=== PATIENT | male | born 1960 | race Caucasian/White ===

== ENCOUNTER → 2020-08-22 | Outpatient (CLI) | payer OTHER ==
--- NOTE | 2020-08-22 12:53 | KCIC ---
Study: MRI of the left hip without contrast INDICATION: Left hip pain. No recent injury. COMPARISON: None. TECHNIQUE: Multiplanar MR imaging of the left hip performed without the use of intravenous or intra-a rticular contrast. FINDINGS: Bones/hip: No acute fracture or focally aggressive marrow signal abnormality. No avascular necrosis o r stress reaction seen at either hip. Ghost track from intramedullary nail removal on the left. Femor al head/neck junction osteophyte formation bilaterally in addition to degenerative changes along the acetabular rim with cyst formation. Chronic degenerative proliferation along the left greater trochan ter and at the ischial tuberosities. Incompletely assessed discogenic arthrosis at L5-S1. Labrum/cartilage: Multifocal degenerative tearing of the labrum on the left. Even more extensive tear ing of the partially assessed right labrum with complex paralabral cyst formation. Partial thickness chondral loss at the left hip but in part high-grade. No well delineated full-thickness defect. Ligamentum teres: At least partially torn and replaced by heterogeneous T2 signal. Greater trochanteric bursa: Greater trochanteric bursitis on the left with fluid in continuity with t he sub-gluteus medius and minimus bursae. Musculotendinous: Full-thickness tear of the gluteus medius. Diffuse fatty infiltration of the gluteu s and medius likely with heterotopic ossification at the expected location of the myotendinous juncti on. Favored a high-grade partial-thickness tearing of the gluteus minimus with less pronounced muscul ar fatty infiltration. Insertional iliopsoas tendinosis. Tendinosis at the rectus femoris origin. Ten dinosis and an intermediate grade chronic partial tear at the left common hamstring origin. Tendinosi s and a low-grade partial tear at the right common hamstring origin. IMPRESSION: 1. Fully torn gluteus medius on the left with severe fatty infiltration of the associated muscle. Th ere appears to be heterotopic ossification at the expected location of the myotendinous junction sugg esting that this tear is chronic. Favored high-grade partial-thickness as opposed to full-thickness t earing of the gluteus minimus off its insertion. Intermediate grade chronic partial tear of the left common hamstring origin. Mild iliopsoas and rectus femoris tendinosis. 2. Greater trochanteric bursitis on the left with fluid communicating with the sub-gluteus medius an d minimus bursae. 3. Multifocal degenerative tearing of the labrum on the left on background of arthrosis and high-gra de partial thickness chondral loss. At least partially torn ligamentum teres. 4. The right hip is only partially evaluated but exhibits diffusely labral tearing on a background o f arthrosis. Mild chronic low-grade tear of the right common hamstring origin. Electronically signed by: MANDI WARD MD (08/22/2020 12:51 PM) [id number]
== END ==
LOC: KCIC MRI 10:35
PROVIDERS: ATTEND Family Medicine
DX: S76.312A Strain of muscle, fascia and tendon of the posterior muscle group at thigh level, left thigh, initial encounter (principal); S76.012S Strain of muscle, fascia and tendon of left hip, sequela; S76.392 Other specified injury of muscle, fascia and tendon of the posterior muscle group at thigh level, left thigh; S73.192A Other sprain of left hip, initial encounter; M70.62 Trochanteric bursitis, left hip; M25.852 Other specified joint disorders, left hip; M79.18 Myalgia, other site; M47.817 Spondylosis without myelopathy or radiculopathy, lumbosacral region; X58.XXXS Exposure to other specified factors, sequela; X58.XXXA Exposure to other specified factors, initial encounter; Y93.89 Activity, other specified; Y92.89 Other specified places as the place of occurrence of the external cause; Y99.8 Other external cause status
CPT/HCPCS: 73721

== ENCOUNTER → 2020-09-18 | Outpatient (CLI) | payer OTHER ==
--- NOTE | 2020-09-18 17:09 | KCIC ---
MR LUMBAR SPINE WO [id number] Date: 09/18/2020 2:55 PM Indication: LUMBAR RADICULOPATHY. Chronic left sided lower back pain into left hip and leg. Comparison: None. Technique: Multi-planar multi-weighted magnetic resonance imaging of the lumbar spine was performed w ithout intravenous contrast using the standard lumbar spine protocol. FINDINGS: Right convex lumbar curvature. Trace retrolisthesis at L1-2 and L2-3. No acute fracture. Mild to mode rate multilevel degenerative disc desiccation and disc height loss. No marrow replacing process to ibarra ggest malignancy. The conus terminates at a normal level. No abnormal signal is seen within the visualized distal spina l cord. No clumping of intrathecal nerve roots. No soft tissue abnormality in the visualized abdomen or pelvis. T12-L1: Disc bulge. Mild facet arthropathy. No significant spinal stenosis or neural foraminal narrow ing. L1-L2: Disc bulge. Mild facet arthropathy. Mild spinal stenosis and left lateral recess narrowing. Mo derate bilateral neural foraminal narrowing. L2-L3: Disc bulge. Moderate facet arthropathy. Mild spinal stenosis. Mild right and moderate left lat eral recess narrowing. Moderate right and moderate to severe left neural foraminal narrowing. L3-L4: Disc bulge with annular tear. Severe facet arthropathy. Ligamentum flavum thickening. Moderate to severe spinal stenosis and left greater than right lateral recess narrowing. Moderate right and m oderate to severe left neural foraminal narrowing. L4-L5: Disc bulge. Severe facet arthropathy. Ligamentum flavum thickening. Severe spinal stenosis and lateral recess narrowing. Moderate to severe bilateral neural foraminal narrowing. L5-S1: Disc bulge. Moderate facet arthropathy. No significant spinal stenosis. Mild bilateral neural foraminal narrowing. IMPRESSION: Severe spinal canal stenosis at L4-5, moderate to severe at L3-4. Degenerative changes otherwise deta iled level by level above. Electronically signed by: Chivo Solitario MD (09/18/2020 5:07 PM) DAVIES CAMPUSSESAR
== END ==
LOC: KCIC MRI 14:24
PROVIDERS: ATTEND Physician Assistant
DX: M48.061 Spinal stenosis, lumbar region without neurogenic claudication (principal); M47.26 Other spondylosis with radiculopathy, lumbar region; M48.8X5 Other specified spondylopathies, thoracolumbar region; M48.8X6 Other specified spondylopathies, lumbar region; M43.8X6 Other specified deforming dorsopathies, lumbar region; M54.42 Lumbago with sciatica, left side; G89.29 Other chronic pain
CPT/HCPCS: 72148

== ENCOUNTER → 2020-10-02 | Outpatient (CLI) | payer OTHER ==
[~2020-10-02] MED LIST: IOHEXOL 180 MG/ML 10 ML VIAL. ONE; LORA10TA68 PO; MELO15TA23 PO; METH-561 PO; TRAM50TA PO; methylPREDNISolone ACETATE 80 MG/ML VIAL. ONE
--- NOTE | 2020-10-02 16:57 | PDOC1 ---
INITIAL PAIN CONSULT DATE OF SERVICE: DOS: DATE: 10/02/20 TIME: 16:50 CHIEF COMPLAINT: Chief Complaint: Low back and left lower extremity pain HISTORY OF PRESENT ILLNESS: 60-year-old male presents history of pain low back left lower extremity for approximately 2 months not the result of any specific injury or accident that he is aware of but had injury in the past with a torn gluteus medius tendon and pain began August 11 this year in the low back bilaterally and into the left lateral and posterior leg into the posterior gluteus posterior thigh lateral anterior thigh medial thigh medial lower leg into the ankle and foot with some tingling in the foot as well. Patient reports a stabbing and throbbing in the back shooting in the leg on the left side tingling and numbness in the foot and leg radiating and aching in the low back patient reports is worse with walking standing changing positions better with sitting better with laying down generally does not awaken her from sleep at night does not bother control with his body walking he has a cane with him today which he is using in his right hand patient reports has had physical therapy in the past done exercise and is currently doing exercise neither which have helped decrease the pain significantly patient also has had chiropractic treatment which is helped temporarily has been using an inversion table at home which he feels has been slightly helpful but does not use it more than once or twice in the last few weeks patient did have an MRI scan of the lumbar spine showing severe spinal canal stenosis L4-5 moderate to severe at L3-4 with disc bulge and annular tear at L3-4 level and severe facet arthropathy at L4-5 with severe spinal stenosis and lateral recess narrowing with moderate to severe bilateral neuroforaminal narrowing at L4-5. Patient rates his disability rating 0-10 10 being the worst as a 10 with family home responsibilities recreation social activity occupation sexual behavior 7 with self-care and 0 with life support activities. PAST MEDICAL HISTORY: PMH: Arthritis PREVIOUS SURGERIES: Past Surgical Hx: Left femoral neck fracture 1977, 2 hernia repairs CURRENT MEDICATIONS: Current Meds: Active Scripts Medications Dose Route/Sig Max Daily Dose Days Date Category Claritin (Loratadine) 10 Mg Tablet 1 Tab PO DAILY 30 10/02/20 Reported Meloxicam 15 Mg Tablet 1 Tab PO DAILY 30 10/02/20 Reported Tramadol Hcl 50 Mg Tablet 50 Mg PO Q6HRS PRN 10/02/20 Reported Tramadol Hcl 50 Mg Tablet 50 Mg PO Q6HRS PRN 10/02/20 Reported Methocarbamol 500 Mg Tablet 500 Mg PO Q6HRS 10/02/20 Reported ALLERGIES; Allergies: Coded Allergies: hydrocodone (Verified Allergy, Unknown, Itching, 10/02/20) FAMILY HISTORY: Family Hx: Prostate cancer SOCIAL HISTORY: Social Hx: Patient is under alcohol does not smoke says any illegal illicit recreational drugs is lives with his spouse lives locally in [facility] and does construction administrator work currently. REVIEW OF SYSTEMS: ROS: Positive for those items mentioned in history of present illness, all systems are reviewed, otherwise negative ,and are complete full and well-documented on patient's chart. PHYSICAL EXAM: VS: Blood pressure is 140/86 pulse 103 respirations 18 temperature 90.3 F height is 6 foot weight is 219 pounds PE: PHYSICAL EXAMINATION: GENERAL: The patient is awake, alert, oriented, appropriate, very pleasant in demeanor. HEENT: Shows normocephalic, atraumatic. Extraocular movements are intact and symmetrical. Oral cavity: Mucous membranes moist and pink. Dentition is intact. NECK: Shows anterior throat supple without palpable lymphadenopathy noted. Swallow reflex symmetrical. CHEST: Shows normal on inspection. Breath sounds are clear bilaterally, no rales rhonchi wheezes auscultated. HEART: Shows S1, S2 clear. No murmurs auscultated. ABDOMEN: Soft, nontender, nondistended. No palpable organomegaly is noted. No rebound or guarding demonstrated. BACK: Shows spine grossly in the midline. Normal-appearing cervical lordotic curvature. There is slightly increased thoracic kyphosis, some minor flattening of the lumbar lordotic curvature. Lumbar paraspinous muscles show symmetrical on inspection, on palpation shows some moderate tenderness diffusely throughout the upper, middle and lower distribution of the paraspinous muscles bilaterally and also into the lower thoracic paraspinous musculature, firm and tender, but without specific trigger points, without radiation of pain. The patient has good rotational motion of the lumbar spine, both laterally as well as extension and flexion without significant difficulty. No tenderness over the spinous processes, sacrum or sacroiliac regions. EXTREMITIES: Lower extremities show deep tendon reflexes 2+ in the patellar and tendo calcaneus tendons. Motor exam is 5 on a scale of 5 with right dorsiflexion, extension, quadriceps and hamstring flexion and 4/5 on the left. Peripheral pulses are 1+ posterior tibial. No peripheral edema is noted bilaterally. Lower extremities are warm and dry to touch, equal in color and appearance. Straight leg raise noted to be positive on the left at approximately 40 degrees decreased with knee flexion, right side is negative. Gaenslen's and Peter's maneuvers are negative bilaterally. The patient is able to stand, stand on his toes without significant difficulty or loss of balance, walks with a slight favoring gait does appear to favor the left lower extremity is using a cane in his right hand ambulate. SKIN: Shows warm and dry, good turgor. No edema. No sores, rashes or bruising throughout. IMPRESSION: Impression: 60-year-old male with approximate 2-month history increasing pain low back left lower extremity radicular fashion. MRI scan lumbar spine as noted History of arthritis Plan: Options discussed with patient including conservative management physical therapies and interventional techniques. Patient like to pursue interventional techniques. We discussed a lumbar epidural steroid injections description as well as anatomical models to describe the procedure. Risks were discussed including but not limited to: Bleeding, infection, possibility of epidural hematoma and subsequent neurological compromise, dural puncture, headaches, spinal cord and/or nerve damage, side effects of steroid medication, and poor results regarding pain control. Patient understands and wished to proceed. Procedure is lumbar epidural steroid injection under local anesthetic using sterile prep and drape at the L4-5 level using C-arm fluoroscopic guidance in both AP and lateral views medications injected is 120 mg Depo-Medrol +10mL preservative-free normal saline and 2 mL contrast- condition at discharge is stable patient tolerated procedure well had no complications. SPARKLE GOMES MD Oct 02, 2020 16:57
--- NOTE | 2020-10-02 16:58 | PDOC4 ---
Procedure Note: ICD 10 Code: ICD 10 Code: M 54.16 M 48.06 M 51.36 Procedure Note: Patient was consented for lumbar epidural steroid injection with fluoroscopic guidance. Risks were discussed including but not limited to: Bleeding, infection, possibility of epidural hematoma and subsequent neurological compromise, dural puncture, headaches, spinal cord and/or nerve damage, side effects of steroid medication, and poor results regarding pain control. Patient understands and wished to proceed. Procedure is lumbar epidural steroid injection under local anesthetic using s terile prep and drape at the L4-5 level using C-arm fluoroscopic guidance in both AP and lateral views medications injected is 120 mg Depo-Medrol +10mL preservative-free normal saline and 2 mL contrast- condition at discharge is stable patient tolerated procedure well had no complications. SPARKLE GOMES MD Oct 02, 2020 16:58
== END ==
LOC: PNCL 14:02
PROVIDERS: ATTEND Anesthesiology
DX: M51.16 Intervertebral disc disorders with radiculopathy, lumbar region (principal); M79.662 Pain in left lower leg; M54.5 Low back pain; M19.90 Unspecified osteoarthritis, unspecified site; Z79.899 Other long term (current) drug therapy; Z98.890 Other specified postprocedural states
CPT/HCPCS: 62323; 99205; J1040; Q9965; G0463

== ENCOUNTER → 2020-10-23 | Outpatient (CLI) | payer OTHER ==
[~2020-10-23] MED LIST changes: -IOHEXOL 180 MG/ML 10 ML VIAL. ONE; -methylPREDNISolone ACETATE 80 MG/ML VIAL. ONE
--- NOTE | 2020-10-23 12:37 | PDOC ---
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 We discussed this in some detail with him today and will make recommendations and forward those to his employer as requested. Schedule return in approximately 1 week and will have him keep that appointment for potential reevaluation and treatment as necessary. Physical Exam: PE: . SPARKLE GOMES MD Oct 23, 2020 12:37
== END ==
LOC: PNCL 11:16
PROVIDERS: ATTEND Anesthesiology
DX: M51.16 Intervertebral disc disorders with radiculopathy, lumbar region (principal)
CPT/HCPCS: G0463

== ENCOUNTER → 2020-11-03 | Outpatient (CLI) | payer OTHER ==
[~2020-11-03] MED LIST changes: +IOHEXOL 180 MG/ML 10 ML VIAL. ONE; +methylPREDNISolone ACETATE 80 MG/ML VIAL. ONE
--- NOTE | 2020-11-03 10:18 | PDOC ---
Progress Note - Pain Clinic Date of Service: DOS: DATE: 11/03/20 TIME: 10:15 Diagnosis: Dx: Lumbar radiculopathy with lumbar degenerative disease and lumbar spinal stenosis History or Present Illness: HPI: 60-year-old male returns for follow-up status post lumbar epidural steroid injection x1. Patient reports about 75% improvement at least in the pain the low back and left lower extremity still significant pain in the left lower extremity lateral calf into the foot as well patient reports is worse with walking standing changing position he has been using an inversion table as well as wearing a back brace which he has with him today reports the pain is still significantly improved has been increasing his distance walking doing household activities work activities better and standing for longer periods well is sleeping better at night patient reports pain is 8 on scale 10 is worse over the past week 6 on average 1least is a 6 today pain scribes aching and tight tingling can be radiating and again of the left lower extremity into the foot patient reports no new motor or sensory deficits no new bowel or bladder incontinence. Patient reports with sitting is better with lying down the pain is almost 0. Patient reports new pain in his left foot and is having more pain and having difficulty using inversion table because the device that holds the feet is exacerbating the pain as well. Physical Exam: VS: Blood pressure 141/92 pulse 91 respirations 16 temperature 90.6 2 Fahrenheit weight is 224 pounds height is 6 foot PE: PHYSICAL EXAMINATION: GENERAL: The patient is awake, alert, oriented, appropriate, very pleasant in demeanor HEENT: Shows normocephalic, atraumatic. Extraocular movements are intact and symmetrical. Oral cavity: Mucous membranes moist and pink. Dentition is intact. NECK: Shows anterior throat supple without palpable lymphadenopathy noted. Swallow reflex symmetrical. CHEST: Shows normal on inspection. Breath sounds are clear bilaterally, no rales rhonchi wheezes auscultated. HEART: Shows S1, S2 clear. No murmurs auscultated. ABDOMEN: Soft, nontender, nondistended, obese. No palpable organomegaly is noted. BACK: Shows spine grossly in the midline. Normal-appearing cervical lordotic curvature. There is slightly increased thoracic kyphosis, some minor flattening of the lumbar lordotic curvature. Lumbar paraspinous muscles show symmetrical on inspection, on palpation shows some moderate tenderness diffusely throughout the upper, middle and lower distribution of the paraspinous muscles, but without specific trigger points, without radiation of pain. The patient has good rotational motion of the lumbar spine, both laterally as well as extension and flexion without significant difficulty. EXTREMITIES: Lower extremities show deep tendon reflexes 2+ in the patellar and tendo calcaneus tendons. Motor exam is 5 on a scale of 5 with right dorsiflexion, extension, quadriceps and hamstring flexion and 4/5 on the left. Peripheral pulses are 1+ posterior tibial. No peripheral edema is noted bilaterally. Lower extremities are warm and dry to touch, equal in color and appearance. SKIN: Shows warm and dry, good turgor. No edema. No sores, rashes or bruising throughout. Procedure: Procedure: Options discussed with patient. Patient chart was reviewed his current medication regimen updated current review of systems updated today as well. We will proceed with a second lumbar epidural steroid traction today with fluoroscopic guidance. Risks were discussed including but not limited to: Bleeding, infection, possibility of epidural hematoma and subsequent neurologi theresa compromise, dural puncture, headaches, spinal cord and/or nerve damage, side effects of steroid medication, and poor results regarding pain control. Patient understands and wished to proceed. Patient return to clinic in approximate 2 is a follow-up, was counseled as return appointment, activity level, and side effects to be aware of. Medication Injected: Med Injected: Procedure is lumbar epidural steroid injection under local anesthetic using sterile prep and drape at the L4-5 level using C-arm fluoroscopic guidance in both AP and lateral views medications injected is 120 mg Depo-Medrol +10mL p reservative-free normal saline and 2 mL contrast- condition at discharge is stable patient tolerated procedure well had no complications. Condition at Discharge: Condition at Discharge: Condition at discharge stable, patient already the procedure well and had no complications. SPARKLE GOMES MD Nov 03, 2020 10:18
--- NOTE | 2020-11-03 10:19 | PDOC4 ---
Procedure Note: ICD 10 Code: ICD 10 Code: M54.16 M51.36 M4 8.06 Procedure Note: Patient was consented for lumbar epidural steroid injection with fluoroscopic guidance risks were discussed including but not limited to: Bleeding, infection, possibility of epidural hematoma and subsequent neurological compromise, dural puncture, headaches, spinal cord and/or nerve damage, side effects of steroid medication, and poor results regarding pain control. Patient understands and wished to proceed. Procedure is lumbar epidural steroid injection under local anesthetic using sterile prep and drape at the L4-5 level using C-arm fluoroscopic guidance in both AP and lateral views medications injected is 120 mg Depo-Medrol +10mL preservative-free normal saline and 2 mL contrast- condition at discharge is stable patient tolerated procedure well had no complications. SPARKLE GOMES MD Nov 03, 2020 10:19
== END | disposition home or self-care (01) ==
LOC: PNCL 09:42
PROVIDERS: ATTEND Anesthesiology
DX: M51.16 Intervertebral disc disorders with radiculopathy, lumbar region (principal); M48.061 Spinal stenosis, lumbar region without neurogenic claudication; Z79.899 Other long term (current) drug therapy; Z88.8 Allergy status to other drugs, medicaments and biological substances
CPT/HCPCS: 62323; J1040; Q9965

== ENCOUNTER → 2020-12-30 | Outpatient (CLI) | payer OTHER ==
[~2020-12-30] MED LIST changes: +methylPREDNISolone ACETATE 40 MG/ML VIAL. ONE
--- NOTE | 2020-12-30 08:30 | PDOC ---
Progress Note - Pain Clinic Date of Service: DOS: DATE: 12/30/20 TIME: 08:27 Diagnosis: Dx: Lumbar radiculopathy lumbar degenerative disease and lumbar spinal stenosis History or Present Illness: HPI: 60-year-old male returns for follow-up status post lumbar epidural steroid injection last on November 03, 2020 patient did very well about 90% improvement lasting for 2 months patient reports he did very well the pain was not returning whatsoever back he fell on ice tears landing on his left hip very abruptly with significant pain returning after that time. Patient reports prior to the fall he is having almost no pain in the left leg or the low back but now it is returning is on the right side as well patient reports some right-sided pain in the leg after the fall which is new for him as he not had a right-sided pain previously. Patient reports mostly in the hip and lower extremity the left lower leg only in the right hip and thigh patient reports aching sharp tingling stabbing rates a 10 on scale 10 is worse over the past week 5 on average 5 its least is a 5 today patient reports no loss of motor function no bowel or bladder incontinence. Prior to that he is doing much better distance walking doing household activities try with greater ease and comfort as well as sleeping better. Patient reports awakening from sleep now about once a night once every 6 hours or so. Physical Exam: VS: Blood pressure is 136/86 pulse 84 respirations 18 temperature is 90.0 F weight is 2 1 5 pounds PE: PHYSICAL EXAMINATION: GENERAL: The patient is awake, alert, oriented, appropriate, very pleasant in demeanor HEENT: Shows normocephalic, atraumatic. Extraocular movements are intact and symmetrical. Oral cavity: Mucous membranes moist and pink. Dentition is intact. NECK: Shows anterior throat supple without palpable lymphadenopathy noted. Swallow reflex symmetrical. CHEST: Shows normal on inspection. Breath sounds are clear bilaterally, distant but no rales or rhonchi. HEART: Shows S1, S2 clear. No murmurs auscultated. ABDOMEN: Soft, nontender, nondistended. No palpable organomegaly is noted. BACK: Shows spine grossly in the midline. Normal-appearing cervical lordotic curvature. There is slightly increased thoracic kyphosis, some minor flattening of the lumbar lordotic curvature. Lumbar paraspinous muscles show symmetrical on inspection, on palpation shows some moderate tenderness diffusely throughout the upper, middle and lower distribution of the paraspinous muscles, but without specific trigger points, without radiation of pain. The patient has good rotational motion of the lumbar spine, both laterally as well as extension and flexion without significant difficulty. EXTREMITIES: Lower extremities show deep tendon reflexes 2+ in the patellar and tendo calcaneus tendons. Motor exam is 5 on a scale of 5 with right dorsiflexion, extension, quadriceps and hamstring flexion and 4/5 on the left. Peripheral pulses are 1+ posterior tibial. No peripheral edema is noted bilaterally. Lower extremities are warm and dry. SKIN: Shows warm and dry, good turgor. No edema. No sores, rashes or bruising throughout. Procedure: Procedure: Options discussed with the patient. Patient chart reviews his current medi cation regimen updated current review of systems updated today as well. We will proceed with a lumbar epidural steroid injection today with fluoroscopic guidance risks were discussed including but not limited to: Bleeding, infection, possibility of epidural hematoma and subsequent neurological compromise, dural puncture, headaches, spinal cord and/or nerve damage, side effects of steroid medication, and poor results regarding pain control. Patient understands and wished to proceed. Patient will return to clinic in approximate 2 weeks for follow-up, was counseled as to return appointment, activity level, and side effects to be aware of. Medication Injected: Med Injected: Procedure is lumbar epidural steroid injection under local anesthetic using sterile prep and drape at the L4 5 level using C-arm fluoroscopic guidance in both AP and lateral views medications injected is 120 mg Depo-Medrol +10mL preservative-free normal saline and 2 mL contrast- condition at discharge is sta ble patient tolerated procedure well had no complications. Condition at Discharge: Condition at Discharge: Condition at discharge stable, patient tolerated procedure well and had no complications. SPARKLE GOMES MD Dec 30, 2020 08:30
--- NOTE | 2020-12-30 08:31 | PDOC4 ---
Procedure Note: ICD 10 Code: ICD 10 Code: M54.16 M 48.06 M51.36 Procedure Note: Patient was consented for lumbar epidural steroid injection with fluoroscopic guidance. Risks were discussed including but not limited to: Bleeding, infection, possibility of epidural hematoma and subsequent neurological compromise, dural puncture, headaches, spinal cord and/or nerve damage, side effects of steroid medication, and poor results regarding pain control. Patient understands and wished to proceed. Procedure is lumbar epidural steroid injection under local anesthetic using carmen rile prep and drape at the L4-5 level using C-arm fluoroscopic guidance in both AP and lateral views medications injected is 120 mg Depo-Medrol +10mL preservative-free normal saline and 2 mL contrast- condition at discharge is stable patient tolerated procedure well had no complications. SPARKLE GOMES MD Dec 30, 2020 08:31
== END | disposition home or self-care (01) ==
LOC: PNCL 07:38
PROVIDERS: ATTEND Anesthesiology
DX: M51.16 Intervertebral disc disorders with radiculopathy, lumbar region (principal); M48.061 Spinal stenosis, lumbar region without neurogenic claudication; Z79.899 Other long term (current) drug therapy; Z88.8 Allergy status to other drugs, medicaments and biological substances
CPT/HCPCS: 62323; J1030; J1040; Q9965

== ENCOUNTER → 2021-01-08 | Outpatient (CLI) | payer OTHER ==
[~2021-01-08] MED LIST changes: -IOHEXOL 180 MG/ML 10 ML VIAL. ONE; -methylPREDNISolone ACETATE 40 MG/ML VIAL. ONE; -methylPREDNISolone ACETATE 80 MG/ML VIAL. ONE
--- NOTE | 2021-01-08 16:31 | PDOC ---
Progress Note - Pain Clinic Date of Service: DOS: DATE: 01/08/21 TIME: 16:27 Diagnosis: Dx: Lumbar radiculopathy with lumbar degenerative disease lumbar spinal stenosis History or Present Illness: HPI: 60-year-old male returns for follow-up status post lumbar epidural steroid injection. Patient reports no significant improvement and actually his pain is gotten worse in the low back and the left lower extremity with pain rating the posterior gluteus posterior lateral thigh lateral anterior thigh anteromedial thigh medial lower leg to the ankle on the left side worse with walking standing changing positions patient reports initially did very well after the first injections he had about 90% improvement for almost 2 months following his first injection however his most recent December 30 has actually had some increased pain afterwards with significant fatigability and weakness in the left lower extremity as well as increased pain patient rates his 10 on scale 10 is worse over the past week 8 on average to its least is an 8 today patient reported sharp and tingling burning stabbing radiating in the back and the left lower extremity as noted. Patient reports no bowel or bladder incontinence no loss of function but significant fatigability in the left lower extremity with sensation of weakness. Physical Exam: VS: Blood pressure is 137/108 pulse 84 respirations 18 temperature 90.1 F height is 6 foot weight is 213 pounds PE: PHYSICAL EXAMINATION: GENERAL: The patient is awake, alert, oriented, appropriate, very pleasant in demeanor HEENT: Shows normocephalic, atraumatic. Extraocular movements are intact and symmetrical. Oral cavity: Mucous membranes moist and pink. Dentition is intact. NECK: Shows anterior throat supple without palpable lymphadenopathy noted. Swallow reflex symmetrical. CHEST: Shows normal on inspection. Breath sounds are clear bilaterally, distant no rales or rhonchi. HEART: Shows S1, S2 clear. No murmurs auscultated. ABDOMEN: Soft, nontender, nondistended. No palpable organomegaly is noted. BACK: Shows spine grossly in the midline. Normal-appearing cervical lordotic curvature. There is slightly increased thoracic kyphosis, some flattening of the lumbar lordotic curvature. Lumbar paraspinous muscles show symmetrical on inspection, on palpation shows some moderate tenderness diffusely throughout the upper, middle and lower distribution of the paraspinous muscles without specific trigger points, without radiation of pain. The patient has good rotational motion of the lumbar spine, both laterally as well as extension and flexion without significant difficulty. EXTREMITIES: Lower extremities show deep tendon reflexes 2+ in the patellar and tendo calcaneus tendons. Motor exam is 5 on a scale of 5 with right dorsiflexion, extension, quadriceps and hamstring flexion and 4/5 on the left. Peripheral pulses are 1+ posterior tibial. No peripheral edema is noted bilaterally. Lower extremities are warm and dry. SKIN: Shows warm and dry, good turgor. No edema. No sores, rashes or bruising throughout. Procedure: Procedure: Options discussed with patient. Patient chart was reviewed his current medication regimen updated current review of systems updated today as well. We will check MRI scan as patient symptoms have significantly changed with increased weakness and increased pain in a lumbar radiculopathy pattern with an L4-5 dermatomal distribution on the left. Pending results, will formulate treatment plan at that time. Medication Injected: Med Injected: None Condition at Discharge: Condition at Discharge: Condition at discharge is stable. SPARKLE GOMES MD Jan 08, 2021 16:31
== END | disposition home or self-care (01) ==
LOC: PNCL 15:39
PROVIDERS: ATTEND Anesthesiology
DX: M51.16 Intervertebral disc disorders with radiculopathy, lumbar region (principal); M48.061 Spinal stenosis, lumbar region without neurogenic claudication; Z79.899 Other long term (current) drug therapy; Z88.8 Allergy status to other drugs, medicaments and biological substances
CPT/HCPCS: 99212; G0463

== ENCOUNTER → 2021-01-12 | Outpatient (CLI) | payer OTHER ==
--- NOTE | 2021-01-12 12:12 | KCIC ---
MR LUMBAR SPINE [id number] History: Reason: Left lumbar radiculopathy. / Spl. Instructions: / History: LBP and Lt. radiculopath y post fall. Technique: Multiplanar, multi sequential MR imaging was performed of the lumbar spine. Comparison: None Findings: Slight grade 1 anterolisthesis L4 on L5. Normal vertebral body height. No acute fracture. Conus terminates at the normal location. No evidence of nerve root clumping. L1-L2: Central disc protrusion with annular fissure. Mild canal narrowing. Mild facet arthropathy. M ild bilateral neuroforaminal narrowing. L2-L3: Small disc bulge. Moderate facet arthropathy. No canal narrowing. Mild subarticular recess na rrowing. Mild bilateral neuroforaminal narrowing. L3-L4: Broad-based disc bulge with central annular fissure. Advanced facet arthropathy. Limited flav um thickening. Moderate canal narrowing. Subarticular recess narrowing. Abutment of the descending L4 nerve roots, left greater than right. Moderate left and mild right neuroforaminal narrowing. L4-L5: Large disc extrusion centrally. Severe canal narrowing. Severe subarticular recess narrowing. Nerve root compression. Advanced facet arthropathy. Bilateral facet joint effusions. Mild bilateral neuroforaminal narrowing. L5-S1: Small disc bulge with annular fissure. Advanced facet arthropathy. No canal narrowing. No fortino roforaminal narrowing. When compared the prior examination the degenerative findings are similar. Impression: 1. Moderate lumbar spondylosis most prominent L3-L4 and L4-L5. 2. Severe L4-L5 canal narrowing with nerve root compression, unchanged. 3. Moderate L3-L4 canal narrowing with severe subarticular recess narrowing, left greater than right . 4. Neuroforaminal narrowing most prominent L4-5. Electronically signed by: Curt Waite DO (01/12/2021 12:10 PM) [id number]
== END | disposition home or self-care (01) ==
LOC: KCIC MRI 09:34
PROVIDERS: ATTEND Anesthesiology
DX: M47.26 Other spondylosis with radiculopathy, lumbar region (principal); M48.061 Spinal stenosis, lumbar region without neurogenic claudication; Z79.899 Other long term (current) drug therapy; Z88.8 Allergy status to other drugs, medicaments and biological substances
CPT/HCPCS: 72148

== ENCOUNTER → 2021-02-02 | Outpatient (CLI) | payer OTHER ==
[~2021-02-02] MED LIST changes: +BUPIVACAINE MPF 0.25% 10 ML VIAL. ONE; +IOHEXOL 180 MG/ML 10 ML VIAL. ONE; +methylPREDNISolone ACETATE 80 MG/ML VIAL. ONE
--- NOTE | 2021-02-02 11:44 | PDOC4 ---
Procedure Note: ICD 10 Code: ICD 10 Code: M54.16 M51.36 M4 8.06 Procedure Note: Patient was consented for left L4-5 transforaminal epidural steroid injection with fluoroscopic guidance. Risks were discussed including but not limited to: Bleeding, infection, possibility of epidural hematoma and subsequent neurologica l compromise, dural puncture, headaches, spinal cord and/or nerve damage, potential injection into the vertebral artery at that level and permanent ischemic damage, side effects of steroid medication, and poor results regarding pain control. Patient understands and wished to proceed. Under sterile prep and drape patient was placed in prone position using C-arm fluoroscopic guidance to identify the L4-5 distribution oblique and slightly cephalad angled C arm. The left L4-5 target was identified and using lidocaine for anesthetizing the skin 22-gauge Alexus pencil point needle was then used to enter the skin and into the subcutaneous tissues using direct C-arm fluoroscopic guidance to guide the needle into the transforaminal aspect of the left L4-5 vertebrae this was confirmed with lateral views showing the needle tip in the superior aspect of the paravertebral region. Aspiration was noted to be negative, -1.5 cc of contrast was then injected with good spread both medially into the epidural space as well as laterally along the nerve root without uptake and without distribution and uptake on digital subtraction. At this time, a nathaniel ution containing 2 cc of 0.25% bupivacaine and 80 mg of Depo-Medrol was then injected. Needle was withdrawn and sterile bandage was applied. Patient tolerated procedure well had no immediate complications SPARKLE GOMES MD Feb 02, 2021 11:44
--- NOTE | 2021-02-02 11:44 | PDOC ---
Progress Note - Pain Clinic Date of Service: DOS: DATE: 02/02/21 TIME: 11:40 Diagnosis: Dx: Lumbar radiculopathy with lumbar degenerative disease and lumbar spinal stenosis History or Present Illness: HPI: 60-year-old male returns for follow-up status post lumbar epidural steroid injection most recently December 30 patient had a new MRI scan showing some significant large disc bulges at the L4-5 level with central extrusion and nerve root compression we discussed this with him and he returns today complaining still pain low back and left lower extremity posterior gluteus posterior lateral thigh lateral anterior thigh anteromedial thigh medial lower leg and into the calf with some numbness on the lateral calf as well patient reports aching sharp tingling numb standing worse with walking standing change positions better with sitting or laying down but does awaken from sleep least once or twice a night patient rates his pain is a 10 on scale 10 is worst 7 on average to its least is a 7 today. Patient reports no bowel bladder incontinence significant difficulty with walking standing changing positions and is using a cane in his right hand. Patient has a new back brace that he is using as well and brought that with him to demonstrate it today and he reports it does help to moderate extent as well. Physical Exam: VS: Blood pressure is 130/92 pulse 94 respirations 18 temperature 98.0 F height 6 foot weight is 211 pounds PE: PHYSICAL EXAMINATION: GENERAL: The patient is awake, alert, oriented, appropriate, very pleasant in demeanor HEENT: Shows normocephalic, atraumatic. Extraocular movements are intact and symmetrical. Oral cavity: Mucous membranes moist and pink. Dentition is intact. NECK: Shows anterior throat supple without palpable lymphadenopathy noted. Swallow reflex symmetrical. CHEST: Shows normal on inspection. Breath sounds are clear bilaterally. HEART: Shows S1, S2 clear. No murmurs auscultated. ABDOMEN: Soft, nontender, nondistended. No palpable organomegaly is noted. BACK: Shows spine grossly in the midline. Normal-appearing cervical lordotic curvature. There is slightly increased thoracic kyphosis, some minor flattening of the lumbar lordotic curvature. Lumbar paraspinous muscles show symmetrical on inspection, on palpation shows some moderate tenderness diffusely throughout the upper, middle and lower distribution of the paraspinous muscles without specific trigger points, without radiation of pain. The patient has good rotational motion of the lumbar spine, both laterally as well as extension and flexion without significant difficulty. EXTREMITIES: Lower extremities show deep tendon reflexes 2+ in the patellar and tendo calcaneus tendons. Motor exam is 5 on a scale of 5 with right dorsiflexion, extension, quadriceps and hamstring flexion and 4/5 on the left. Peripheral pulses are 1+ posterior tibial. No peripheral edema is noted bilaterally. Lower extremities are warm and dry. SKIN: Shows warm and dry, good turgor. No edema. No sores, rashes or bruising throughout. Procedure: Procedure: Options discussed with patient. Patient's old chart was reviewed as his current medication regimen updated current review of systems updated today as well. We will proceed with a left lumbar transforaminal L4-5 level steroid injection with fluoroscopic guidance. Risks were discussed including but not limited to: Bleeding, infection, possibility of epidural hematoma and subsequent neurological compromise, dural puncture, headaches, spinal cord and/or nerve damage, potential injection of vertebral artery at that level and permanent ischemic damage, side effects of steroid medication, and poor results regarding pain control. Patient understands and wished to proceed. Medication Injected: Med Injected: Under sterile prep and drape patient was placed in prone position using C-arm fluoroscopic guidance to identify the L4-5 distribution oblique and slightly cephalad angled C arm. The left L4-5 target was identified and using lidocaine for anesthetizing the skin 22-gauge Alexus pencil point needle was then used to enter the skin and into the subcutaneous tissues using direct C-arm fluoroscopic guidance to guide the needle into the transforaminal aspect of the left L4-5 vertebrae this was confirmed with lateral views showing the needle tip in the superior aspect of the paravertebral region. Aspiration was noted to be negative, -1.5 cc of contrast was then injected with good spread both medially into the epidural space as well as laterally along the nerve root without uptake and without distribution and uptake on digital subtraction. At this time, a solution containing 2 cc of 0.25% bupivacaine and 80 mg of Depo-Medrol was then injected. Needle was withdrawn and sterile bandage was applied. Patient tolerated procedure well had no immediate complications Condition at Discharge: Condition at Discharge: Condition at discharge stable, patient tolerated the procedure well and had no complications. SPARKLE GOMES MD Feb 02, 2021 11:44
== END | disposition home or self-care (01) ==
LOC: PNCL 10:15
PROVIDERS: ATTEND Anesthesiology
DX: M51.16 Intervertebral disc disorders with radiculopathy, lumbar region (principal); M48.061 Spinal stenosis, lumbar region without neurogenic claudication; Z79.899 Other long term (current) drug therapy
CPT/HCPCS: 64483; J1040; J3490; Q9965